=== PATIENT | male | born 1955 | race Caucasian/White ===

== ENCOUNTER 2016-07-29 11:45 | Emergency (ER) | payer BC ==
--- NOTE | 2016-07-29 12:10 | EDM.PDOC ---
ED HISTORY OF PRESENT ILLNESS - General Chief Complaint: Respiratory Problem Stated Complaint: broken rib and bronchitis Time Seen by Provider: 07/29/16 12:00 Source of Information: Reports: Patient History Limitations: Reports: No limitations - History of Present Illness INITIAL COMMENTS - FREE TEXT/NARRATIVE: HISTORY AND PHYSICAL: History of present illness: [Patient comes to the emergency room complaining of right lateral rib pain and cough. Patient states that he slipped and fell, hitting his right lateral ribs on the bed of the pickup. He has had pain to his right ribs ever since. He had a cough beginning last week which has continued. He complains of pain with coughing. He's not had fever or chills. His sputum has been clear in color. Denies body aches, earache, and sore throat. No pain in his chest shortness of breath and difficulty breathing. He continues to smoke less than one half pack of cigarettes per day. He usually has an inhaler at home that he uses when he needs it but he has run out of this. he's not taken any medication for his rib pain or for his cough.] Review of systems: As per history of present illness and below otherwise all systems reviewed and negative. Past medical history: As per history of present illness and as reviewed below otherwise noncontributory. Surgical history: As per history of present illness and as reviewed below otherwise noncontributory. Social history: No reported history of drug or alcohol abuse. Family history: As per history of present illness and as reviewed below otherwise noncontributory. Physical exam: General: Well-developed, well-nourished male in no acute distress. HEENT: Atraumatic, normocephalic. negative for conjunctival pallor or scleral icterus, mucous membranes moist, throat clear, neck supple, nontender, trachea midline. Lungs: Clear to auscultation, breath sounds equal bilaterally. No wheezing crackles or rales. Tender with palpation over right lateral ribs. No ecchymosis , lesions or erythema. Heart: S1S2, regular rate and rhythm. negative for clicks, rubs, or JVD. Abdomen: Soft, nondistended, nontender. Negative for masses or hepatosplenomegaly. Pelvis: Stable nontender. Genitourinary: Deferred. Rectal: Deferred. Extremities: Atraumatic. Neurovascular unremarkable. Neuro: Awake, alert, oriented. Cranial nerves II through XII unremarkable. Cerebellum unremarkable. Motor and sensory unremarkable throughout. Exam nonfocal. Diagnostics: [Right rib x-rays with chest x-ray] Impression: [Right rib pain Viral illness] Plan: [Discussed with patient that his rib x-rays showed no fractures and his chest x- ray is clear. Recommend Tylenol alternating with ibuprofen as needed for rib discomfort. Mucinex and Robitussin as needed for cough. Followup with PCP. All patient's questions and concerns are addressed. He is given a work note excusing him through July 31.] Definitive disposition and diagnosis as appropriate pending reevaluation and review of above. - Related Data Allergies/ADRs: Allergies Allergy/AdvReac Type Severity Reaction Status Date / Time diphenhydramine HCl Allergy Tremors Verified 07/29/16 11:58 [From Benadryl] Home Meds: Home Meds . [No Known Home Meds] 05/24/14 [History] Past Medical History - Past Health History Medical/Surgical History: Denies Medical/Surgical History - Infectious Disease History Infectious Disease History: Reports: Chicken pox Social & Family History - Family History Family Medical History: Noncontributory - Tobacco Use Smoking Status *Q: Current Every Day Smoker Years of Tobacco use: 50 Packs/Tins Daily: 0.4 - Alcohol Use Days Per Week of Alcohol Use: 0 - Recreational Drug Use Recreational Drug Use: Yes Drug Use in Last 12 Months: Yes Recreational Drug Type: Reports: Marijuana/Hashish Recreational Drug Use Frequency: Rarely ED ROS GENERAL - Review of Systems Review Of Systems: ROS reveals no pertinent complaints other than HPI. ED EXAM, GENERAL - Physical Exam Exam: See Below Course - Vital Signs Last Recorded V/S: Last Vital Signs Temp 98.8 F 07/29/16 13:04 Pulse 64 07/29/16 13:04 Resp 16 07/29/16 13:04 BP 168/94 H 07/29/16 13:04 Pulse Ox 97 07/29/16 13:04 Departure - Departure Time of Disposition: 13:00 Disposition: Home, Self-Care 01 Condition: good Clinical Impression: Rib pain on right side, Viral illness Instructions: Rib Contusion, Viral Respiratory Infection Referrals: PCP,None [Primary Care Provider] - Forms: ED Department Discharge Additional Instructions: The following information is given to patients seen in the emergency department who are being discharged to home. This information is to outline your options for follow-up care. We provide all patients seen in our emergency department with a follow-up referral. The need for follow-up, as well as the timing and circumstances, are variable depending upon the specifics of your emergency department visit. If you don't have a primary care physician on staff, we will provide you with a referral. We always advise you to contact your personal physician following an emergency department visit to inform them of the circumstance of the visit and for follow-up with them and/or the need for any referrals to a consulting specialist. The emergency department will also refer you to a specialist when appropriate. This referral assures that you have the opportunity for follow-up care with a specialist. All of these measure are taken in an effort to provide you with optimal care, which includes your follow-up. Under all circumstances we always encourage you to contact your private physician who remains a resource for coordinating your care. When calling for follow-up care, please make the office aware that this follow-up is from your recent emergency room visit. If for any reason you are refused follow-up, please contact the [facility] emergency department at and asked to speak to the emergency department charge nurse. [address] [id number] Alternate ibuprofen and Tylenol as needed for discomfort. Bronchitis as a viral illnesses. Recommend pushing fluids getting plenty of rest. Use [id number] Robitussin or Delsym cough syrup. You are Given a prescription for Ventolin inhaler. use as prescribed. Return to ER as needed as discussed.
--- NOTE | 2016-07-29 12:50 | CR ---
EXAMINATION: PA chest and right ribs HISTORY: Pain. FINDINGS: The trachea is midline. The cardiomediastinal silhouette is within normal limits. No pulmonary infil trates, effusions or pneumothorax. There is a chronic interstitial prominence and mild hyperinflatio n. Osseous structures appear unremarkable. No displaced rib fracture identified. IMPRESSION: No acute cardiopulmonary process.
[2016-07-29 13:06] VITALS: BP 168/94
== END 2016-07-29 13:08 | disposition home or self-care (01) ==
LOC: MW.ED 11:45
DX: R07.81 Pleurodynia (principal); B34.9 Viral infection, unspecified; F17.210 Nicotine dependence, cigarettes, uncomplicated; Z88.8 Allergy status to other drugs, medicaments and biological substances
CPT/HCPCS: 71101-26-RT; 71101-RT; 99283